=== PATIENT | male | born 1995 | race Two or more races ===

== ENCOUNTER 2019-06-25 12:42 | Emergency (ER) | payer OTHER ==
[~2019-06-25] VITALS: Ht 170.2 cm; Wt 60.0 kg
[2019-06-25 13:30] VITALS: BP 138/92
[2019-06-25] MEDS ORDERED: METH4TAB2 PO (14:02)
--- NOTE | 2019-06-25 14:03 | PHYS DOC ---
Past Medical History Past Medical History: Other Additional Past Medical Histor: LEFT SIDED WEAKNESS, HYPOGLYCEMIA, ADHD Past Surgical History: Tonsillectomy Smoking Status: Never Smoker Alcohol Use: None Adult General Chief Complaint Chief Complaint: UPPER EXTREMITY PAIN HPI HPI Patient is a 24 year old male who presents with sharp shooting pain that goes from the left pack into the medial arm and down the arm into the hand. Patient states is currently on gabapentin. He states is not helping the nerve pain. He states is going on for the last 5 days. No swelling of the arm and skin is pink warm and dry. Radial pulses are present. Cap refill less than 3 seconds. I have educated patient's mother on lidocaine patches and she states that the patient cannot use it because of the adhesive he is allergic to it. This is been taking Tylenol and ibuprofen but is not helping the pain. Rates his pain a 9 out of 10. Review of Systems Review of Systems Musculoskeletal: Left arm pain. Denies back pain or joint pain [] All other systems were reviewed and found to be within normal limits, except as documented in this note. Allergies Allergies Allergies Coded Allergies Type Severity Reaction Last Updated Verified methylphenidate Adverse Reaction Intermediate 06/25/19 Yes Physical Exam Physical Exam Constitutional: Well developed, well nourished, no acute distress, non-toxic appearance. [] HENT: Normocephalic, atraumatic, bilateral external ears normal, oropharynx moist, no oral exudates, nose normal. [] Eyes: PERRLA, EOMI, conjunctiva normal, no discharge. [] Neck: Normal range of motion, no tenderness, supple, no stridor. [] Cardiovascular:Heart rate regular rhythm, no murmur [] Lungs & Thorax: Bilateral breath sounds clear to auscultation [] Abdomen: Bowel sounds normal, soft, no tenderness, no masses, no pulsatile masses. [] Skin: Warm, dry, no erythema, no rash. [] Back: No tenderness, no CVA tenderness. [] Extremities: Left medial tenderness, no cyanosis, no clubbing, ROM intact, no edema. [] Neurologic: Alert and oriented X 3, normal motor function, normal sensory function, no focal deficits noted. [] Psychologic: Affect normal, judgement normal, mood normal. [] Current Patient Data Vital Signs Vital Signs Date Time Temp Pulse Resp B/P (MAP) Pulse Ox O2 Delivery O2 Flow Rate FiO2 2/14/20 13:30 98.2 86 16 138/92 (107) 99 Room Air 98.2 EKG EKG [] Radiology/Procedures Radiology/Procedures [] Course & Med Decision Making Course & Med Decision Making Pertinent Labs and Imaging studies reviewed. (See chart for details) Patient has a history of weakness to the left arm. [place] is weaker on the left side. Patient states this is been going on for 3 years off and on but the last 5 days is just worse than it has been. Patient has a history of nerve pain. Tenderness to the medial arm. Patient denies any shortness of breath, nausea, vomiting, abdominal pain, headache, dizziness, skin color changes, temperature color changes, numbness or tingling. No joint swelling or redness or heat. Alert and oriented. Speaks in full clear sentences. Ambulatory with a steady gait. [] Dragon Disclaimer Dragon Disclaimer This electronic medical record was generated, in whole or in part, using a voice recognition dictation system. Departure Departure Impression: Primary Impression: Arm pain, left Disposition: HOME, SELF-CARE Condition: STABLE Referrals: BAYRON RIOS MD (PCP) Patient Instructions: Pain, Neuropathic Additional Instructions: Follow-up with Dr. Borrego. Take medications as prescribed. Keep taking gabapentin and ibuprofen. Scripts Methylprednisolone (MEDROL) 4 Mg Tab.ds.pk 1 PKG PO UD, #1 PKG Prov: NEELA BURGESS APRN 06/25/19 NEELA BURGESS APRN Jun 25, 2019 14:03
== END 2019-06-25 14:25 | disposition home or self-care (01) ==
LOC: ER 12:42
DX: M79.602 Pain in left arm (principal); Z90.89 Acquired absence of other organs; Z88.8 Allergy status to other drugs, medicaments and biological substances
CPT/HCPCS: 99283

== ENCOUNTER → 2019-07-06 | Outpatient (CLI) | payer OTHER ==
[2019-06-25 13:30] VITALS: BP 138/92
[~2019-07-06] MED LIST: METH4TAB2 PO
--- NOTE | 2019-07-06 17:31 | KCIC ---
EXAM: Lumbar spine, 2 views; thoracic spine, 3 views; cervical spine, 3 views. HISTORY: Paresthesia. Weakness. COMPARISON: None. FINDINGS: Lumbar spine: 2 views of the lumbar spine are obtained. There is minimal lumbar levocurvature. There is no significant listhesis. The vertebral bodies are normal in height and the disc spaces are preserved. Thoracic spine: 3 views of the thoracic spine are obtained. There is minimal S-shaped thoracic curvature. There is no listhesis. The vertebral bodies are normal in height and the disc spaces are preserved. Cervical spine: 3 views of cervical spine are obtained. There is slight reversal cervical lordosis. There is no listhesis. The vertebral bodies are normal in height and the disc spaces are preserved. IMPRESSION: No acute osseous finding. Electronically signed by: Virginia Monsalve MD (07/06/2019 5:27 PM) [id number]
== END | disposition home or self-care (01) ==
LOC: KCIC 14:37
PROVIDERS: ATTEND Nurse Practitioner Family
DX: M43.8X5 Other specified deforming dorsopathies, thoracolumbar region (principal); M40.292 Other kyphosis, cervical region; M79.2 Neuralgia and neuritis, unspecified; R20.2 Paresthesia of skin; R53.1 Weakness
CPT/HCPCS: 72040; 72072; 72100

== ENCOUNTER 2019-09-27 01:18 | Emergency (ER) | payer OTHER ==
[~2019-09-27] VITALS: Ht 175.3 cm; Wt 66.8 kg
[2019-09-27] MEDS ORDERED: IV NORMAL SALINE 1000ML BAG 1,000 ML IV ONE (02:00)
[2019-09-27] MEDS ORDERED: ORPHENADRINE CITRATE 60 MG/2 ML VIAL. IV ONE (02:00)
[2019-09-27 02:16] VITALS: BP 134/92
[2019-09-27 02:29] LABS: CALCIUM 8.9 mg/dL (8.5-10.1); CREATININE 0.9 mg/dL (0.7-1.3); GFR 104.6; MAGNESIUM 1.8 mg/dL (1.8-2.4); POTASSIUM 3.6 mmol/L (3.5-5.1)
[2019-09-27] MEDS ORDERED: ORPH100T PO (02:42)
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
== END 2019-09-27 02:53 | disposition home or self-care (01) ==
LOC: ER 01:18
DX: M62.838 Other muscle spasm (principal); Z88.8 Allergy status to other drugs, medicaments and biological substances
CPT/HCPCS: 36415; 80048; 83735; 96374; 99283; J2360; J7030

== ENCOUNTER → 2019-10-19 | Outpatient (CLI) | payer OTHER ==
[2019-09-27 02:16] VITALS: BP 134/92
[~2019-10-19] MED LIST changes: +ORPH100T PO
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
== END ==
LOC: KCIC MRI 08:30
PROVIDERS: ATTEND Psychiatry & Neurology Neurology with Special Qualifications in Child Neurology
DX: G81.94 Hemiplegia, unspecified affecting left nondominant side (principal); F07.81 Postconcussional syndrome; T14.90XA Injury, unspecified, initial encounter; V89.2XXA Person injured in unspecified motor-vehicle accident, traffic, initial encounter; Y93.89 Activity, other specified; Y92.89 Other specified places as the place of occurrence of the external cause; Y99.8 Other external cause status
CPT/HCPCS: 70551

== ENCOUNTER → 2019-11-02 | Outpatient (CLI) | payer OTHER ==
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
== END ==
LOC: KCIC MRI 09:12
PROVIDERS: ATTEND Psychiatry & Neurology Neurology with Special Qualifications in Child Neurology
DX: G81.94 Hemiplegia, unspecified affecting left nondominant side (principal); M54.2 Cervicalgia; T14.90XA Injury, unspecified, initial encounter; F07.81 Postconcussional syndrome; V89.2XXA Person injured in unspecified motor-vehicle accident, traffic, initial encounter; Y93.89 Activity, other specified; Y92.89 Other specified places as the place of occurrence of the external cause; Y99.8 Other external cause status
CPT/HCPCS: 72141